=== PATIENT | female | born 1950 | race Caucasian/White ===

== ENCOUNTER 2018-09-26 10:44 | Emergency (ER) | payer MEDICARE ==
[~2018-09-26] VITALS: Ht 170.1 cm; Wt 59.0 kg
--- NOTE | ~2018-09-26 | EKG ---
[place], [place] ELECTROCARDIOGRAM REPORT NAME: ANITA FERNANDEZ UNIT #: [id number] ROOM: DOCTOR: EPIPHANY DRAFT REPORT BIRTHDATE: [birth year] [facility] Test Date: 2018-09-26 Test Time: 10:59:58 Pat Name: ANITA FERNANDEZ Department: Room: Gender: F Business Performance Specialist: Teri Molina : 1950 Requested By: GAETANO BISHOP Order Number: [id number] Reading MD: Feliz Tubbs MD Measurements Intervals [place] Rate: 93 P: 70 HI: 137 QRS: 56 QRSD: 100 T: 45 QT: 373 QTc: 464 Interpretive Statements Sinus rhythm Left atrial enlargement RSR' in V1 or V2, right VCD or RVH Compared to ECG 04/19/2018 23:10:52 Atrial abnormality now present Right ventricular hypertrophy now present RSR' in V1 or V2 now present ST (T wave) deviation no longer present Possible ischemia no longer present Electronically Signed On 09-27-2018 11:23:59 PST by Feliz Tubbs MD CM:EKGRPT:ELECTROCARDIOGRAM REPORT [id number] [facility] [place] D[facility]FT REPORT GAETANO BISHOP MD
[~2018-09-26 10:44] MED LIST: CEFDINIR300 MG PO
[2018-09-26 11:21] LABS: HEMATOCRIT 42.1 % (37.0-47.0); HEMOGLOBIN 14.1 g/dl (12.0-16.0); MEAN CELL VOLUME 88.8 fl (81.0-99.0); MEAN CORPUSCULAR HGB 29.7 pg (27.0-31.0); MEAN CORPUSCULAR HGB CONC 33.5 g/dl (33.0-37.0); MEAN PLATELET VOLUME 10.1 fl (9.6-12.3); PLATELET COUNT AUTOMATED 264 10*3/uL (130-400); RED BLOOD COUNT 4.74 10*6/uL (4.10-5.10); RED CELL DISTRI WIDTH 12.9 % (0-14.5); WHITE BLOOD COUNT 5.4 10*3/uL (4.8-10.8)
[2018-09-26 11:41] LABS: ALBUMIN 3.3 gm/dl (3.1-4.5); ALKALINE PHOSPHATASE 41 U/L (45-117); BILIRUBIN NEGATIVE (NEGATIVE); BLOOD TRACE-LYSED (NEGATIVE); BUN 19 mg/dl (7-24); CHLORIDE 109 mmol/L (98-107); CLARITY CLEAR (CLEAR); COLOR YELLOW (YELLOW); CREATININE 0.67 mg/dL (0.55-1.02); GLUCOSE NEGATIVE (NEGATIVE); KETONE 1+ (NEGATIVE); LEUKO ESTERASE NEGATIVE (NEGATIVE); NITRITE NEGATIVE (NEGATIVE); PH 7.5 (5.0-9.0); POTASSIUM 3.4 mmol/L (3.5-5.1); SGOT/AST 32 IU/L (3-35); SGPT/ALT 37 U/L (12-78); SODIUM 140 mmol/L (136-145); SPECIFIC GRAVITY <= 1.005 (1.005-1.030); TOTAL PROTEIN 6.8 gm/dL (6.4-8.2); UROBILINOGEN 0.2 E.U./dl (0.2-1.0)
[2018-09-26 11:45] LABS: TROPONIN I < 0.015 ng/ml (<0.045)
[2018-09-26 11:50] LABS: ACT PARTIAL THROMBO TIME 21.9 SECONDS (20.8-31.5); INTERNATIONAL NORM RATIO 0.9 (2.0-3.5)
[2018-09-26 11:51] LABS: WBC 0-2 wbc/hpf (0-5)
[2018-09-26 11:55] LABS: ATYPICAL LYMPHS 1 % (0-0); BASOPHILS 1 % (0-1); TOTAL CELLS COUNTED 100 #CELLS
[2018-09-26 11:56] LABS: PLATELET SUFFICIENCY NORMAL (NORMAL)
== END 2018-09-26 13:35 | disposition home or self-care (01) ==
LOC: ED 10:44
PROVIDERS: Emergency Medicine
DX: R00.2 Palpitations (principal); R55 Syncope and collapse; R63.4 Abnormal weight loss; R06.02 Shortness of breath; R07.89 Other chest pain; R11.0 Nausea; R10.9 Unspecified abdominal pain; R51 Headache

== ENCOUNTER → 2024-01-17 | Outpatient (CLI) | payer MEDICARE | END | disposition home or self-care (01) | LOC: LAB 14:32 | PROVIDERS: ATTEND Orthopaedic Surgery | DX: M25.562 Pain in left knee (principal); M25.561 Pain in right knee; R53.83 Other fatigue ==